=== PATIENT | male | born 2000 | race Caucasian/White ===

== ENCOUNTER 2020-08-26 18:43 | Emergency (ER) | payer BC, OTHER ==
[~2020-08-26] VITALS: Ht 188 cm; Wt 98.4 kg
[2020-08-26] MEDS ORDERED: TETRACAINE HCL 0.5% OPTH(EYE) SOLN 4ML RIGHTEYE ONE (19:45)
[2020-08-26] MEDS ORDERED: FLUORESCEIN SOD 1 MG TEST STRIP RIGHTEYE ONE (19:45)
[2020-08-26] MEDS ORDERED: ACETAMINOPHEN 325 MG TAB PO ONE (19:45)
[2020-08-26 20:12] VITALS: BP 146/81
== END 2020-08-26 20:34 | disposition home or self-care (01) ==
LOC: ER 18:43
DX: L03.213 Periorbital cellulitis (principal); H10.31 Unspecified acute conjunctivitis, right eye

== ENCOUNTER 2024-10-13 12:14 | Emergency (ER) | payer BC ==
[~2024-10-13] VITALS: Ht 188 cm; Wt 107.9 kg
[2024-10-13 14:04] LABS: Basophils # (auto) 0 10 ^3/uL (0-0.2); Basophils % (auto) 0.4 % (0.0-2.0); Eosinophils # (auto) 0.1 10 ^3/uL (0-0.8); Eosinophils % (auto) 1.5 % (0.0-7.0); Hematocrit 43.5 % (41.0-53.0); Hemoglobin 14.8 g/dL (13.5-17.5); Lymphocytes # (auto) 1.3 10 ^3/uL (0.4-5.4); Lymphocytes % (auto) 28.7 % (10.0-50.0); Mean Corpuscular Hgb Conc. 34.1 g/dL (32.0-36.0); Mean Corpuscular Volume 90.8 fL (80.0-100.0); Monocytes # (auto) 0.3 10 ^3/uL (0-1.3); Monocytes % (auto) 7.1 % (0.0-12.0); Neutrophils # (auto) 2.9 10 ^3/uL (1.6-8.6); Neutrophils % (auto) 62.3 % (37.0-80.0); Platelet Count (auto) 235 10^3/uL (140-450); Red Blood Cells 4.79 10^6/uL (4.5-5.90); Red Cell Distribution Width 12.5 % (11.8-14.3); White Blood Cell 4.6 10^3/uL (4.4-10.8)
--- NOTE | 2024-10-13 14:05 | ED.PDOC ---
History of Present Illness HPI Comments 24 y/o M, with a FMHx of heart disease, presents with c/o abnormal labs, today. Patient reports on receiving a call and being instructed by his PCP to come to the ED following recent routine lab blood work drawn, yesterday, for "elevated potassium levels," today. Patient endorses no prior Hx of hyperkalemia in the past or having any current symptoms. Chief Complaint: Abnormal LAB's Time Seen by MD: 13:10 Primary Care Provider: DONNA Reviewed Notes: Nurses Notes, Medications, Allergies Allergies: Coded Allergies: Ibuprofen (Verified Allergy, Unknown, 08/26/20) Information Source: Patient Mode of Arrival: Ambulatory Severity: Moderate Timing: Hours Duration: Since onset Prehospital treatment: None Past Medical History PAST MEDICAL HISTORY: Denies Surgical History: Denies all surgeries Family History Family History: Reviewed,noncontributory to illness, No family hx of Cancer, No family hx of DM, No family hx of HTN, No family hx ofKidney funmilayo, No family hx of Liver funmilayo, No family hx of Lung funmilayo, No family hx of Stroke, Family hx of heart funmilayo (cardiomegaly, heart murmur ) Social History Smoker: Non-Smoker Alcohol: Denies ETOH Use Drugs: Denies Drug Use Lives In: Home All Other Systems: Reviewed and Negative (negative otherwise stated in HPI) Physical Exam General Appearance: No Apparent Distress, Normal HEENT: Normal ENT Inspection, Pharynx Normal, TMs Normal Neck: Full Range of Motion, Non-Tender, Normal, Normal Inspection Respiratory: Chest Non-Tender, Lungs Clear, No Accessory Muscle Use, No Respiratory Distress, Normal Breath Sounds Cardiovascular: No Edema, No JVD, No Murmur, No Gallop, Normal Peripheral Pulses, Regular Rate/Rhythm Breast Exam: Deferred Gastrointestinal: No Organomegaly, Non Tender, No Pulsatile Mass, Normal Bowel Sounds, Soft Genitalia: Deferred Pelvic: Deferred Rectal: Deferred Extremities: No calf tenderness, Normal capillary refill, Normal inspection, Normal range of motion, Non-tender, No pedal edema Musculoskeletal : Apperance: Normal Neurologic: Alert, corporate sales trainer II-XII nml as Tested, No Motor Deficits, Normal Affect, Normal Mood, No Sensory Deficits Cerebellar Function: Normal Reflexes: Normal Skin: Dry, Normal Color, Warm Peripheral Pulses: 3+ Radial (R), 3+ Radial (L) Lymphatic: No Adenopathy Was a procedure done? Was a procedure done?: No Differential Dx Considerations may include: hyperkalemia, electrolyte imbalance X-Ray, Labs, Meds, VS Vital Signs Date Time Temp Pulse Resp B/P (MAP) Pulse Ox O2 Delivery O2 Flow Rate FiO2 10/13/24 12:17 98.1 82 20 139/79 (99) 100 Lab Test 10/13/24 13:13 Range/Units White Blood Count 4.6 4.4-10.8 10^3/uL Red Blood Count 4.79 4.5-5.90 10^6/uL Hemoglobin 14.8 13.5-17.5 g/dL Hematocrit 43.5 41.0-53.0 % Mean Corpuscular Volume 90.8 80.0-100.0 fL Mean Corpuscular Hemoglobin 31.0 28.0-32.0 pg Mean Corpuscular Hemoglobin Concent 34.1 32.0-36.0 g/dL Red Cell Distribution Width 12.5 11.8-14.3 % Platelet Count 235 140-450 10^3/uL Mean Platelet Volume 7.9 6.9-10.8 fL Neutrophils (%) (Auto) 62.3 37.0-80.0 % Lymphocytes (%) (Auto) 28.7 10.0-50.0 % Monocytes (%) (Auto) 7.1 0.0-12.0 % Eosinophils (%) (Auto) 1.5 0.0-7.0 % Basophils (%) (Auto) 0.4 0.0-2.0 % Neutrophils # (Auto) 2.9 1.6-8.6 10 ^3/uL Lymphocytes # (Auto) 1.3 0.4-5.4 10 ^3/uL Monocytes # (Auto) 0.3 0-1.3 10 ^3/uL Eosinophils # (Auto) 0.1 0-0.8 10 ^3/uL Basophils # (Auto) 0 0-0.2 10 ^3/uL Nucleated Red Blood Cells 0.0 % Sodium Level 143 136-145 mmol/L Potassium Level 4.1 3.5-5.1 mmol/L Chloride Level 105 98-107 mmol/L Carbon Dioxide Level 30 20-31 mmol/L Anion Gap 8 5-15 Blood Urea Nitrogen 13 9-23 mg/dL Creatinine 1.05 0.700-1.30 mg/dL Glomerular Filtration Rate Calc 101 >90 mL/min BUN/Creatinine Ratio 12.4 10.0-20.0 Serum Glucose 104 74-106 mg/dL Calcium Level 10.5 H 8.7-10.4 mg/dL Patient alert. States that he was sent by primary care because of high potassium level. Potassium level normal. Vitals stable. Answering all questions. Ambulating. In good health. Explained to the patient to stop taking [id number] energy products. Hemoglobin within normal limits. Physical examination pristine. Was told to follow up with his primary care physician. Was told to come back if there is any problem. Time of 1ST Reevaluation: 13:40 Reevaluation 1ST: Improved Patient Education/Counseling: Diagnosis, Treatment Family Education/Counseling: No Family Present Departure 1 Departure Time of Disposition: 15:17 Impression: Primary Impression: Anxiety Disposition: 01 HOME / SELF CARE / HOMELESS Condition: Good Discharged With: Self Critical Care Note Critical Care Time?: No Stability Stability form required: No Heart Score Heart Score: Heart Score Response (Comments) Value History N/A 0 EKG N/A 0 Age N/A 0 Risk Factors N/A 0 Troponin N/A 0 Total 0 I personally scribed for GEENA ADAMSON MD ([email or web address]) on 10/13/24 at 14:05. Electronically submitted by Elmer Salazar [email or web address]). GEENA ADAMSON MD Oct 13, 2024 14:05
[2024-10-13 14:06] LABS: Chloride 105 mmol/L (98-107); Potassium 4.1 mmol/L (3.5-5.1); Sodium 143 mmol/L (136-145)
[2024-10-13 14:07] LABS: Anion Gap 8 (5-15); Carbon Dioxide 30 mmol/L (20-31)
[2024-10-13 14:08] LABS: Calcium 10.5 mg/dL (8.7-10.4)
[2024-10-13 14:12] LABS: BUN/Creatinine Ratio 12.4 (10.0-20.0); Blood Urea Nitrogen 13 mg/dL (9-23); Glucose 104 mg/dL (74-106)
[2024-10-13 16:16] VITALS: BP 139/79; PULSE 77; RESP 20; TEMP 98.5; O2SAT 99
== END 2024-10-13 16:22 | disposition home or self-care (01) ==
LOC: ER 12:20
DX: F41.9 Anxiety disorder, unspecified (principal); Z88.6 Allergy status to analgesic agent
CPT/HCPCS: 36415; 80048; 85025

== ENCOUNTER 2025-06-26 14:50 | Emergency (ER) | payer BC, OTHER ==
[~2025-06-26] VITALS: Ht 188 cm; Wt 96.5 kg
[2025-06-26 14:53] VITALS: BP 140/70
--- NOTE | 2025-06-26 15:40 | ED.PDOC ---
HPI Comments 25 y.o female presents to the ED for a chief complaint of palpitations that started one week ago s/p working out a high intensity cardio workout. Patient has been attending more mild to moderate cardio style workouts this week, states his heart rate is pumping slower than usual and/or abnormal and was concerned due to family history of cardiac issues. He denies any chest pain, nausea, vomiting, SOB, fever, chills. Chief Complaint: Palpitations Time Seen by MD: 15:30 Primary Care Provider: DONNA Reviewed Notes: Nurses Notes, Medications, Allergies Allergies: Coded Allergies: Ibuprofen (Verified Allergy, Unknown, 08/26/20) Information Source: Patient Mode of Arrival: Ambulatory Severity: Moderate Timing: Weeks Duration: Since onset Quality: Other Onset: At Rest Cardiac Risk Factors: None PE Risk Factors: None History of: None Modifying Factors: Nothing Associated Signs and Symptoms: Palpitations Past Medical History PAST MEDICAL HISTORY: Denies Surgical History: Denies all surgeries Family History Family History: Reviewed,noncontributory to illness, No family hx of Cancer, No family hx of DM, No family hx of HTN, No family hx ofKidney funmilayo, No family hx of Liver funmilayo, No family hx of Lung funmilayo, No family hx of Stroke, Family hx of heart funmilayo Social History Smoker: Non-Smoker Alcohol: Denies ETOH Use Drugs: Denies Drug Use Lives In: Home Constitutional: denies: chills, diaphoresis, fatigue, fever, malaise, sweats, weakness, others EENTM: denies: blurred vision, double vision, ear bleeding, ear discharge, ear drainage, ear pain, ear ringing, eye pain, eye redness, hearing loss, mouth pain, mouth swelling, nasal discharge, nose bleeding, nose congestion, nose pain, photophobia, tearing, throat pain, throat swelling, voice changes, others Respiratory: denies: cough, hemoptysis, orthopnea, SOB at rest, shortness of breath, SOB with excertion, stridor, wheezing, others Cardiovascular: reports: palpitations; denies: chest pain, dizzy spells, diaphoresis, Dyspnea on exertion, edema, irregular heart beat, left arm pain, lightheadedness, PND, syncope, others Gastrointestinal: denies: abdomen distended, abdominal pain, blood streaked bowels, constipated, diarrhea, dysphagia, difficulty swallowing, hematemesis, melena, nausea, poor appetite, poor fluid intake, rectal bleeding, rectal pain, vomiting, others Genitourinary: denies: burning, dysuria, flank pain, frequency, hematuria, incontinence, penile discharge, penile sore, pain, testicle pain, testicle swelling, urgency, others Neurological: denies: dizziness, fainting, headache, left sided numbness, left sided weakness, numbness, paresthesia, pre-existing deficit, right sided numbness, right sided weakness, seizure, speech problems, tingling, tremors, weakness, others Musculoskeletal: denies: back pain, gout, joint pain, joint swelling, muscle pain, muscle stiffness, neck pain, others Integumetry: denies: bruises, change in color, change in hair/nails, dryness, laceration, lesions, lumps, rash, wounds, others Allergic/Immunocompromised: denies: Difficulty Healing, Frequent Infections, Hives, Itching, others Hematologic/Lymphatic: denies: anemia, blood clots, easy bleeding, easy bruising, swollen glands, others Endocrine: denies: excessive hunger, excessive sweating, excessive thirst, excessive urination, flushing, intolerance to cold, intolerance to heat, un explained weight gain, unexplained weight loss, others Psychiatric: denies: anxiety, bipolar disorder, depression, hopeless, panic disorder, schizophrenia, sleepless, suicidal, others All Other Systems: Reviewed and Negative Physical Exam General Appearance: Moderate Distress HEENT: Normal ENT Inspection, Pharynx Normal, TMs Normal Neck: Full Range of Motion, Non-Tender, Normal, Normal Inspection Respiratory: Chest Non-Tender, Lungs Clear, No Accessory Muscle Use, No Respiratory Distress, Normal Breath Sounds Cardiovascular: No Edema, No JVD, No Murmur, No Gallop, Normal Peripheral Pulses, Regular Rate/Rhythm Breast Exam: Deferred Gastrointestinal: No Organomegaly, Non Tender, No Pulsatile Mass, Normal Bowel Sounds, Soft Genitalia: Deferred Pelvic: Deferred Rectal: Deferred Extremities: No calf tenderness, Normal capillary refill, Normal inspection, Normal range of motion, Non-tender, No pedal edema Musculoskeletal : Apperance: Normal Neurologic: Alert, block cleaner II-XII nml as Tested, No Motor Deficits, Normal Affect, Normal Mood, No Sensory Deficits Cerebellar Function: Normal Reflexes: Normal Skin: Dry, Normal Color, Warm Peripheral Pulses: 3+ Radial (R), 3+ Radial (L) Lymphatic: No Adenopathy EKG EKG : Pulse Rate (adult): 69 Comments Ventricular premature complex Was a procedure done? Was a procedure done?: No CP Differential Dx Differential Diagnosis: A-fib, A-Flutter, Angina, Anxiety / Panic Attack, Atrial Dysrhythmia, Electrolyte Disorder, N/A Differential Diagnosis: Angina, Chest Wall Pain, Costochondritis, Pericarditis X-Ray, Labs, Meds, VS Vital Signs Date Time Temp Pulse Resp B/P (MAP) Pulse Ox O2 Delivery O2 Flow Rate FiO2 06/26/25 15:40 54 06/26/25 15:40 69 06/26/25 15:01 69 06/26/25 14:53 98.4 78 18 140/70 98 98.4 Lab Test 06/26/25 16:31 06/26/25 15:10 Range/Units Troponin I High Sensitivity Pending 10 </=54 ng/L D-Dimer, Quantitative < 0.19 0.0-0.49 mg/L FEU Patient alert. Came in because of palpitation. Cardiac marker within normal limits. Vitals stable. Establish intravenous access. Was given fluids. EKG reviewed does show PVCs. Cardiac marker within normal limits pain D-dimer within normal limits. He wa No leg swelling. No chest pain. Saturation pristine on room air. Heart rate within normal limits. No acute process. No risk factors for coronary artery disease. He was told to drink plenty of fluids along with a electrolytes. Was told to follow up with his primary care physician. Was told to come back if there is any problem. Time of 1ST Reevaluation: 15:34 Reevaluation 1ST: Unchanged Patient Education/Counseling: Diagnosis, Treatment, Prognosis Family Education/Counseling: No Family Present SEPSIS Sepsis Screen Date sepsis recognized/suspect: Jun 26, 2025 Time Sepsis recognized/suspect: 1453 Recent Procedure: No On Antibiotic Therapy: No Respiratory Rate >20: No Heart Rate >90: No Temp<36 C (96.8 F) or >38.3 C: No SBP <90 or MAP <65 mmHG: No New Acute Mental Status Change: No Is the patient on CPAP, BIPAP,: No Physician Orders Troponin-I Hs (06/26/25 15:55) Troponin-I Hs (06/26/25 17:55) Electrocardigram (06/26/25 14:58) Electrocardigram (06/26/25 15:58) Electrocardigram (06/26/25 17:58) Vital Signs Date Time Temp Pulse Resp B/P (MAP) Pulse Ox O2 Delivery O2 Flow Rate FiO2 06/26/25 15:40 54 06/26/25 15:40 69 06/26/25 15:01 69 06/26/25 14:53 98.4 78 18 140/70 98 98.4 Departure 1 Departure Time of Disposition: 16:53 Impression: Primary Impression: Palpitations Disposition: 01 HOME / SELF CARE / HOMELESS Condition: Good Discharged With: Self Critical Care Note Critical Care Time?: No Stability Stability form required: No Heart Score Heart Score: Heart Score Response (Comments) Value History Slightly Suspicious 0 EKG Normal 0 Age <45 0 Risk Factors No known risk factors 0 Troponin Normal limit 0 Total 0 I personally scribed for GEENA ADAMSON MD ([email or web address]) on 06/26/25 at 15:40. Electronically submitted by Shira Cunha ([facility]). GEENA ADAMSON MD Jun 26, 2025 15:40
--- NOTE | 2025-06-26 19:09 | ECG ---
[facility] Test Date: 2025-06-26 Test Time: 15:48:46 Pat Name: TD CHILDDepartment: [facility] ED Room: Gender: M Mate Ship: KANDACE : 2000 Requested By: GEENA ADAMSON Order Number: [id number] Reading MD: Reilly Garcia Measurements Intervals [place] Rate: 54 P: 78 ID: 150 QRS: 99 QRSD: 92 T: 15 QT: 396 QTc: 376 Interpretive Statements Sinus rhythm Multiple ventricular premature complexes Borderline right axis deviation Electronically Signed On 06-30-2025 9:33:11 PDT by Reilly Garcia Please click the below link to view image of tracing.
--- NOTE | 2025-06-26 19:09 | ECG ---
[facility] Test Date: 2025-06-26 Test Time: 17:46:53 Pat Name: TD CHILDDepartment: [facility] ED Room: Gender: M [employer] Supervisor: KANDACE : 2000 Requested By: GEENA ADAMSON Order Number: [id number] Reading MD: Reilly Garcia Measurements Intervals [place] Rate: 49 P: 91 MA: 156 QRS: 99 QRSD: 94 T: 12 QT: 411 QTc: 371 Interpretive Statements Sinus bradycardia Multiple ventricular premature complexes Borderline right axis deviation Electronically Signed On 06-30-2025 9:33:42 PDT by Reilly Garcia Please click the below link to view image of tracing.
[2025-06-26] MEDS: LORazepam 0.5 MG TAB PO ONE (20:49)
[2025-06-26] MEDS: SODIUM CHLORIDE 0.9% 1,000 ML IV ONE (20:51)
[2025-06-26 21:00] VITALS: PULSE 59; RESP 16; TEMP 98.3; O2SAT 98
--- NOTE | 2025-06-28 12:43 | ECG ---
[facility] Test Date: 2025-06-26 Test Time: 15:01:33 Pat Name: TD CHILDDepartment: [facility] ED Room: Gender: Systems Integrator: torri : 2000 Requested By: GEENA ADAMSON Order Number: [id number] Reading MD: Reilly Garcia Measurements Intervals [place] Rate: 69 P: 84 AR: 155 QRS: 98 QRSD: 94 T: 15 QT: 376 QTc: 403 Interpretive Statements Sinus rhythm Ventricular premature complex Borderline right axis deviation Electronically Signed On 06-30-2025 9:32:56 PDT by Reilly Garcia Please click the below link to view image of tracing.
== END 2025-06-27 03:02 | disposition left against medical advice (07) ==
LOC: ER 14:50
DX: R00.2 Palpitations (principal); Z88.6 Allergy status to analgesic agent; Z79.899 Other long term (current) drug therapy
CPT/HCPCS: 36415; 84484; 85379; 93005; 96360; 99285; J7030

== ENCOUNTER 2025-07-07 14:06 | Outpatient (CLI) | payer BC | END 2025-07-07 17:00 | disposition home or self-care (01) | LOC: LAB 14:06 | PROVIDERS: ATTEND Internal Medicine | DX: R50.2 Drug induced fever (principal) | CPT/HCPCS: 36415; 83735; 83835; 84443; 85379 ==

== ENCOUNTER 2025-09-18 21:41 | Emergency (ER) | payer BC, OTHER ==
[~2025-09-18] VITALS: Ht 182.9 cm; Wt 100.0 kg
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
[2025-09-19 00:45] VITALS: BP 129/83; PULSE 67; RESP 18; TEMP 98.1; O2SAT 98
== END 2025-09-19 00:59 | disposition home or self-care (01) ==
LOC: ER 21:41
DX: S13.4XXA Sprain of ligaments of cervical spine, initial encounter (principal); S60.511A Abrasion of right hand, initial encounter; R51.9 Headache, unspecified; Z88.6 Allergy status to analgesic agent; V87.9XXA Person injured in other specified (collision)(noncollision) transport accidents involving nonmotor vehicle (traffic), initial encounter; Y92.410 Unspecified street and highway as the place of occurrence of the external cause; Y93.89 Activity, other specified; Y99.8 Other external cause status
CPT/HCPCS: 72040; 73130